=== PATIENT | female | born 1970 | race Caucasian/White ===

== ENCOUNTER → 2018-10-31 | Outpatient (CLI) | payer BC ==
[~2018-10-31] MED LIST: ALBU18HF INHALATION; CYCL10TA7 PO; HYDR-3498 PO; NAPR-985 PO; PRED50TA PO
== END | disposition home or self-care (01) ==
LOC: LAB 07:47
PROVIDERS: ATTEND Internal Medicine
DX: E03.9 Hypothyroidism, unspecified (principal); D68.9 Coagulation defect, unspecified; E78.5 Hyperlipidemia, unspecified
CPT/HCPCS: 80053; 80061; 83036; 84436; 84443; 85025; 85610; 85730

== ENCOUNTER → 2018-12-09 | Outpatient (CLI) | payer BC | END | disposition home or self-care (01) | LOC: LAB 11:35 | PROVIDERS: ATTEND Internal Medicine | DX: D68.59 Other primary thrombophilia (principal); D50.9 Iron deficiency anemia, unspecified | CPT/HCPCS: 80048; 82728; 83890; 85025; 85300; 85302; 85305; 85613; 85651; 85670; 86147 ==

== ENCOUNTER → 2018-12-17 | Outpatient (CLI) | payer BC | END | disposition home or self-care (01) | LOC: LAB 12:53 | PROVIDERS: ATTEND Internal Medicine | DX: D56.9 Thalassemia, unspecified (principal) | CPT/HCPCS: 83020 ==

== ENCOUNTER → 2019-04-14 | Outpatient (CLI) | payer BC | END | disposition home or self-care (01) | LOC: LAB 07:50 | PROVIDERS: ATTEND Internal Medicine | DX: E78.5 Hyperlipidemia, unspecified (principal) | CPT/HCPCS: 80053; 80061; 82728; 83036; 83540; 85025; 85651 ==